=== PATIENT | female | born 1975 | race American Indian/Alaskan Native ===

== ENCOUNTER 2020-04-14 19:01 | Emergency (ER) | payer OTHER ==
[2020-04-14 19:34] VITALS: BP 129/73
== END 2020-04-14 22:10 | disposition left against medical advice (07) ==
LOC: ED 19:01
DX: M54.2 Cervicalgia (principal); M25.519 Pain in unspecified shoulder; M25.569 Pain in unspecified knee; Z53.21 Procedure and treatment not carried out due to patient leaving prior to being seen by health care provider